=== PATIENT | female | born 1950 | race African-American/Black ===

== ENCOUNTER → 2022-01-13 | Day surgery (SDC) | payer OTHER | END | disposition home or self-care (01) | LOC: JRADIR 10:42 | PROVIDERS: ATTEND Internal Medicine Endocrinology, Diabetes & Metabolism | PROC: 0G9G3ZX Drainage of Left Thyroid Gland Lobe, Percutaneous Approach, Diagnostic (ICD-10-PCS; principal; 2022-01-13) | DX: E04.1 Nontoxic single thyroid nodule (principal) | CPT/HCPCS: 10005; 76942; 88173; 88305-TC ==

== ENCOUNTER → 2024-08-07 | Day surgery (SDC) | payer OTHER | END | disposition home or self-care (01) | LOC: JRADIR 09:36 | PROVIDERS: ATTEND Internal Medicine Endocrinology, Diabetes & Metabolism | PROC: 0G9G3ZZ Drainage of Left Thyroid Gland Lobe, Percutaneous Approach (ICD-10-PCS; principal; 2024-08-07) | DX: E04.1 Nontoxic single thyroid nodule (principal) | CPT/HCPCS: 10005; 76942; 88173; 88305-TC ==

== ENCOUNTER 2024-11-16 13:00 | Day surgery (SDC) | payer OTHER ==
[2024-11-16] MEDS: ZOLEDRONIC ACID/MAN/WATER 5 MG/100 ML INFUS..BTL IVPB ONE (13:35)
[2024-11-16] MEDS: ACETAMINOPHEN 325 MG TABLET (FP) PO ONE (14:15)
[2024-11-16 15:44] VITALS: BP 142/75; PULSE 75; RESP 18; TEMP 97.9
== END 2024-11-16 14:10 | disposition home or self-care (01) ==
LOC: FINFUSION 13:00 → FM/S 13:06 → FINFUSION 14:10
PROVIDERS: ATTEND Internal Medicine Endocrinology, Diabetes & Metabolism
PROC: 3E033GC Introduction of Other Therapeutic Substance into Peripheral Vein, Percutaneous Approach (ICD-10-PCS; principal; 2024-11-16)
DX: M81.8 Other osteoporosis without current pathological fracture (principal)
CPT/HCPCS: 96365; J3489